=== PATIENT | male | born 1990 | race Caucasian/White ===

== ENCOUNTER 2017-02-03 15:01 | Emergency (ER) | payer BC ==
[~2017-02-03] VITALS: Ht 185.4 cm; Wt 85.3 kg
--- NOTE | 2017-02-03 15:13 | [facility]gent Treatment Center Report ---
History of Present Issue Date/Time Seen by Provider 02/03/17 1508 Visit Reason Pt arrived: Presenting Problem: Location if Accident: Onset of symptoms date/time:/ or onset unknown for: Have you (or family members/close friends) recently traveled outside the [place]? If Yes, where/when: Have you had exposure to infectious disease within the past month? TB? Other? Specify: Source patient, RN notes reviewed Exam Limitations no limitations Comment 2 day history of bilateral ear pain, congestion and sore throat. Feels weak and fatigued. No fever. No vomiting or diarrhea. ALLERGIES Coded Allergies: No Known Allergies (02/03/17) History Medical History General Angina: No [place]: No Hypertension? No Hyperlipidemia? No CHF? No COPD? No Asthma? No CVA? No Seizures? No Diabetes? No GB Disease: No MRSA? No TB? No Cancer? No Surgical Hx Previous Surgery?Y FOOT SURGERY Social History Alcohol Alcohol: No Review of Systems All Other Systems Reviewed and Negative ENT ear pain, nose congestion, throat pain. Physical Exam Vital Signs Vital Signs Date Time Temp Pulse Resp B/P Pulse O2 O2 Flow FiO2 Ox Delivery Rate 02/03 1511 98.8 102 20 116/75 96 General Appearance normal appearance, no apparent distress Ear, Nose, Throat abnormal TM (R), nasal congestion Respiratory Status No: respiratory distress, trachea midline, chest symmetrical. Lung Sounds bilateral: normal breath sounds, lungs clear. Cardiovascular normal exam, regular rate/rhythm, no peripheral edema, no gallop, no JVD, no murmur, no rub Extremities non-tender, normal range of motion, normal inspection, normal capillary refill Neurologic alert, normal exam, oriented x 3 Mental status normal mood/affect Medical Decision Making LABS/Meds/Orders Pt receiving controlled substance in ED? No Results/Orders Laboratory Tests 02/03/17 1500: Group A Strep Screen NOT DETECTED Orders Procedure Date/time Status [facility] STREP SCREEN 02/03 1511 Complete Departure Departure Time of Disposition 1536 Disposition DC Home or Self Care(routine) Clinical Impression Primary Impression: Otitis media, right Qualifiers: Otitis media type: suppurative Chronicity: acute Recurrence: not specified as recurrent Spontaneous tympanic membrane rupture: without spontaneous rupture Qualified Code: H66.001 - Acute suppurative otitis media without spontaneous rupture of ear drum, right ear Condition STABLE Referrals Moror Bocanegra MD (Family) Patient Instructions DI for Otitis Media (Middle Ear Infection)-Child Additional Instructions Take Sudafed for congestion. Complete antibiotics for ear infection. F/U with PC P if not improving Discharge Counseling Counseled pt/family regarding diagnosis, test results, medications/RX, home care, follow up needs Prescriptions Current Visit Scripts Amoxicillin/Potassium Clav (Augmentin 875-125 Tablet) 1 EACH PO BID #[id number] TAB at 0437
[2017-02-03] MEDS ORDERED: AUGMENTIN 875-1 EACH PO (15:20)
[2017-02-03 15:40] VITALS: BP 116/75
== END 2017-02-03 15:40 | disposition home or self-care (01) ==
LOC: UTC 15:01
DX: H66.001 Acute suppurative otitis media without spontaneous rupture of ear drum, right ear (principal)